=== PATIENT | male | born 1970 | race Caucasian/White ===

== ENCOUNTER 2020-01-18 11:14 | Inpatient (IN) | payer OTHER ==
[~2020-01-18] VITALS: Ht 167.6 cm; Wt 93.1 kg
[2020-01-18] MEDS ORDERED: SODIUM CHLORIDE 0.9% 1,000 ML IV ONE (12:45)
[2020-01-18] MEDS ORDERED: DexAMETHasone SOD PHOS 10MG/1ML VIAL INJ IV ONE (12:45)
[2020-01-18 13:10] LABS: Basophils # (auto) 0 10 ^3/uL (0-0.2); Basophils % (auto) 0.2 % (0.0-2.0); Eosinophils # (auto) 0 10 ^3/uL (0-0.8); Hematocrit 45.2 % (41.0-53.0); Hemoglobin 15.5 g/dL (13.5-17.5); Lymphocytes # (auto) 1.4 10 ^3/uL (0.4-5.4); Lymphocytes % (auto) 8.7 % (10.0-50.0); Mean Corpuscular Hemoglobin 30.6 pg (28.0-32.0); Mean Corpuscular Hgb Conc. 34.2 g/dL (32.0-36.0); Mean Corpuscular Volume 89.5 fL (80.0-100.0); Monocytes # (auto) 0.4 10 ^3/uL (0-1.3); Monocytes % (auto) 2.7 % (0.0-12.0); Neutrophils # (auto) 13.8 10 ^3/uL (1.6-8.6); Neutrophils % (auto) 88.4 % (37.0-80.0); Nucleated Red Blood Cells % 0.2 %; Platelet Count (auto) 278 10^3/uL (140-450); Red Blood Cells 5.05 10^6/uL (4.5-5.90); Red Cell Distribution Width 12.5 % (11.8-14.3); White Blood Cell 15.6 10^3/uL (4.4-10.8)
[2020-01-18 13:20] LABS: Albumin 2.8 g/dL (3.4-5.0); Anion Gap 7 (5-15); Blood Urea Nitrogen 13 mg/dL (7-18); Calcium 8.5 mg/dL (8.5-10.1); Carbon Dioxide 27 mmol/L (21-32); Chloride 94 mmol/L (98-107); Glucose 313 mg/dL (74-106); Potassium 4.1 mmol/L (3.5-5.1); Sodium 128 mmol/L (136-145)
[2020-01-18 13:23] LABS: Lactic Acid w/Reflex 2.5 mmol/L (0.4-2.0)
[2020-01-18 13:25] LABS: Alanine Aminotransferase 74 U/L (16-61); Alkaline Phosphatase 298 U/L (45-117); Aspartate Aminotransferase 47 U/L (15-37); BUN/Creatinine Ratio 17.1; Bilirubin, Total 0.6 mg/dL (0.2-1.0); GFR African American 140 mL/min; GFR Non-African American 116 mL/min; Total Protein 7.6 g/dL (6.4-8.2)
[2020-01-18 13:35] LABS: INR 1.01 (0.9-1.15); Partial Thromboplastin Time 29.2 sec (23.0-31.2)
[2020-01-18] MEDS ORDERED: LABETALOL HCL 5 MG/ML 4ML SYRINGE IV PRN (14:45)
[2020-01-18] MEDS ORDERED: NITROGLYCERIN 0.4 MG SL TAB SL PRN (14:45)
[2020-01-18] MEDS: SODIUM CHLORIDE 0.9% 1,000 ML IV SCH ×2 (14:45→21:13)
[2020-01-18] MEDS ORDERED: ACETAMINOPHEN 500 MG TAB PO PRN (14:45)
[2020-01-18 14:54] VITALS: BP 119/67
[2020-01-18 15:26] LABS: Magnesium 2.7 mg/dL (1.6-2.6)
[2020-01-18 15:34] LABS: Lactate Dehydrogenase 563 U/L (87-241)
[2020-01-18 15:37] LABS: CRP High Sensitivity > 19.0 mg/dL (< 0.3)
[2020-01-18 15:43] VITALS: BP 118/70
[2020-01-18 18:23] VITALS: BP 122/73
[2020-01-18 21:15] VITALS: BP 117/61
[2020-01-18 21:25] VITALS: BP 128/74
[2020-01-18] MEDS: BUDESONIDE (INHALATION) 180 MCG IH IN SCH (21:25)
[2020-01-18] MEDS: ALBUTEROL SULF HFA 90MCG INH 200DOSE IN SCH (21:25)
[2020-01-18] MEDS ORDERED: DEXTROSE (50%) 50ML SYRG IV PRN (21:45)
[2020-01-18] MEDS ORDERED: INSULIN LANTUS (GLARGINE) 1 /0.01ml (100units/ml) SC SCH (22:00)
[2020-01-18] MEDS: INSULIN LANTUS (GLARGINE) 1 /0.01ml (100units/ml) SC SCH (22:15)
[2020-01-18] MEDS: InsuLIN REG 1unit/0.01ml Soln (100units/ml) SC SCH (22:15)
[2020-01-18] MEDS: ACCU-CHEK COMFORT CURVE STRIP VI SCH (22:29)
[2020-01-18 23:52] VITALS: BP 146/68
[2020-01-19] VITALS (13 sets, daily range): BP systolic 97–138; BP diastolic 53–91
[2020-01-19 03:24] LABS: Basophils # (auto) 0 10 ^3/uL (0-0.2); Basophils % (auto) 0.1 % (0.0-2.0); Eosinophils # (auto) 0 10 ^3/uL (0-0.8); Hematocrit 42.8 % (41.0-53.0); Hemoglobin 14.6 g/dL (13.5-17.5); Lymphocytes # (auto) 1.1 10 ^3/uL (0.4-5.4); Lymphocytes % (auto) 9.7 % (10.0-50.0); Mean Corpuscular Hemoglobin 30.5 pg (28.0-32.0); Mean Corpuscular Volume 89.6 fL (80.0-100.0); Monocytes # (auto) 0.6 10 ^3/uL (0-1.3); Monocytes % (auto) 5.7 % (0.0-12.0); Neutrophils # (auto) 9.5 10 ^3/uL (1.6-8.6); Neutrophils % (auto) 84.5 % (37.0-80.0); Nucleated Red Blood Cells % 0.1 %; Platelet Count (auto) 317 10^3/uL (140-450); Red Blood Cells 4.77 10^6/uL (4.5-5.90); Red Cell Distribution Width 12.9 % (11.8-14.3); White Blood Cell 11.2 10^3/uL (4.4-10.8)
[2020-01-19] MEDS: MORPHINE SULF INJ 2 MG/ML SYRINGE 1ML IV PRN ×2 (03:32→06:03)
[2020-01-19 03:43] LABS: Calcium 7.9 mg/dL (8.5-10.1); Potassium 4.2 mmol/L (3.5-5.1)
[2020-01-19 03:49] LABS: Albumin 2.4 g/dL (3.4-5.0); BUN/Creatinine Ratio 24.6; Bilirubin, Total 0.4 mg/dL (0.2-1.0)
[2020-01-19] MEDS: ACCU-CHEK COMFORT CURVE STRIP VI SCH ×4 (06:01→23:46)
[2020-01-19] MEDS: InsuLIN REG 1unit/0.01ml Soln (100units/ml) SC SCH ×4 (06:02→23:59)
[2020-01-19] MEDS: BUDESONIDE (INHALATION) 180 MCG IH IN SCH ×2 (06:25→22:05)
[2020-01-19] MEDS: ALBUTEROL SULF HFA 90MCG INH 200DOSE IN SCH ×3 (06:25→22:05)
[2020-01-19] MEDS: cefTRIAXone 1GM/50ML D5W 50 ML IV SCH (08:28)
[2020-01-19] MEDS ORDERED: ZINC SULFATE 220mg CAP or TAB PO SCH (10:00)
[2020-01-19] MEDS ORDERED: CHOLECALCIFEROL (VITD3) 2,000 UNIT CAP PO SCH (10:00)
[2020-01-19] MEDS ORDERED: PANTOPRAZOLE 40 MG/10 ML VIAL INJ IV SCH (10:00)
[2020-01-19] MEDS ORDERED: ENOXAPARIN SOD 40 MG/0.4 ML SYRINGE SC SCH (10:00)
[2020-01-19] MEDS ORDERED: ASCORBIC ACID 1,000 MG TAB PO SCH (10:00)
[2020-01-19] MEDS: AZITHROMYCIN 500MG/ 250ML 250 ML IV SCH (10:20)
[2020-01-19] MEDS: INSULIN LANTUS (GLARGINE) 1 /0.01ml (100units/ml) SC SCH (10:21)
[2020-01-19] MEDS ORDERED: CHOLECALCIFEROL (VITD3) 2,000 UNIT CAP PO ONE (11:30)
[2020-01-19] MEDS ORDERED: POTASSIUM CHL 20 Meq TABLET PO ONE (11:30)
[2020-01-19] MEDS ORDERED: FUROSEMIDE 40 MG/4 ML VIAL IV ONE (11:30)
[2020-01-19] MEDS ORDERED: ZINC SULFATE 220mg CAP or TAB PO ONE (11:30)
[2020-01-19] MEDS ORDERED: ASCORBIC ACID 500 MG TAB PO ONE (11:30)
[2020-01-19] MEDS ORDERED: THIAMINE 100mg/ml INJ (200mg/2ml VIAL) IV ONE (11:30)
[2020-01-19] MEDS ORDERED: REMDESIVIR 200 MG in NS 210ml LOADING DOSE ADULT IV ONE (17:00)
[2020-01-19] MEDS: ERGOCALCIFEROL 50,000 UNIT(1.25MG) CAP PO SCH (17:10)
[2020-01-19] MEDS: FUROSEMIDE 40 MG/4 ML VIAL IV SCH (19:45)
[2020-01-19] MEDS: LORazepam 2MG/ML-1ML VIAL IV PRN (21:25)
[2020-01-19] MEDS: ENOXAPARIN SOD 40 MG/0.4 ML SYRINGE SC SCH (21:25)
[2020-01-19] MEDS: INSULIN 70/30 1unit/0.01ml Susp (100units/ml) SC SCH (21:39)
[2020-01-20] VITALS (13 sets, daily range): BP systolic 98–122; BP diastolic 40–79
[2020-01-20] MEDS: MORPHINE SULF INJ 2 MG/ML SYRINGE 1ML IV PRN (02:22)
[2020-01-20] MEDS: FUROSEMIDE 40 MG/4 ML VIAL IV SCH ×2 (05:11→18:06)
[2020-01-20] MEDS: InsuLIN REG 1unit/0.01ml Soln (100units/ml) SC SCH ×4 (06:00→23:57)
[2020-01-20] MEDS: ACCU-CHEK COMFORT CURVE STRIP VI SCH ×4 (06:18→23:56)
[2020-01-20] MEDS: ACETAMINOPHEN 325 MG TAB PO PRN ×2 (06:39→15:47)
[2020-01-20] MEDS: ALBUTEROL SULF HFA 90MCG INH 200DOSE IN SCH ×3 (07:02→22:00)
[2020-01-20] MEDS: BUDESONIDE (INHALATION) 180 MCG IH IN SCH ×2 (07:02→22:00)
[2020-01-20] MEDS: cefTRIAXone 1GM/50ML D5W 50 ML IV SCH (08:50)
[2020-01-20] MEDS: AZITHROMYCIN 500MG/ 250ML 250 ML IV SCH (09:45)
[2020-01-20] MEDS: ASCORBIC ACID 500 MG TAB PO SCH (09:46)
[2020-01-20] MEDS: ZINC SULFATE 220mg CAP or TAB PO SCH (09:46)
[2020-01-20] MEDS: CHOLECALCIFEROL (VITD3) 2,000 UNIT CAP PO SCH (09:47)
[2020-01-20] MEDS: DexAMETHasone SOD PHOS 10MG/1ML VIAL INJ IV SCH (09:48)
[2020-01-20] MEDS: FAMOTIDINE 20 MG TAB PO SCH (09:48)
[2020-01-20] MEDS: POTASSIUM CHL 20 Meq TABLET PO SCH (09:48)
[2020-01-20] MEDS: ENOXAPARIN SOD 40 MG/0.4 ML SYRINGE SC SCH ×2 (09:49→23:56)
[2020-01-20] MEDS: THIAMINE 100mg/ml INJ (200mg/2ml VIAL) IV SCH (09:49)
[2020-01-20] MEDS: INSULIN 70/30 1unit/0.01ml Susp (100units/ml) SC SCH ×2 (09:53→23:55)
[2020-01-20 10:40] LABS: Basophils # (auto) 0 10 ^3/uL (0-0.2); Basophils % (auto) 0.3 % (0.0-2.0); Eosinophils # (auto) 0 10 ^3/uL (0-0.8); Eosinophils % (auto) 0.1 % (0.0-7.0); Lymphocytes # (auto) 1.4 10 ^3/uL (0.4-5.4); Lymphocytes % (auto) 12.5 % (10.0-50.0); Mean Corpuscular Hemoglobin 31.2 pg (28.0-32.0); Mean Corpuscular Hgb Conc. 34.8 g/dL (32.0-36.0); Mean Corpuscular Volume 89.7 fL (80.0-100.0); Monocytes # (auto) 0.4 10 ^3/uL (0-1.3); Monocytes % (auto) 4.1 % (0.0-12.0); Nucleated Red Blood Cells % 0.2 %; Platelet Count (auto) 388 10^3/uL (140-450); Red Blood Cells 5.13 10^6/uL (4.5-5.90); White Blood Cell 10.8 10^3/uL (4.4-10.8)
[2020-01-20 10:52] LABS: INR 1.04 (0.9-1.15)
[2020-01-20 10:59] LABS: Albumin 2.7 g/dL (3.4-5.0); Calcium 8.4 mg/dL (8.5-10.1); Potassium 3.7 mmol/L (3.5-5.1)
[2020-01-20 11:08] LABS: Bilirubin, Total 0.8 mg/dL (0.2-1.0); CRP High Sensitivity 9.8 mg/dL (< 0.3); Total Protein 7.9 g/dL (6.4-8.2)
[2020-01-20] MEDS: REMDESIVIR 100mg in NS 230ml DAILYx4DAYS (NO VENT) IV SCH (17:56)
[2020-01-21] VITALS (9 sets, daily range): BP systolic 101–119; BP diastolic 61–78
[2020-01-21] MEDS: LORazepam 2MG/ML-1ML VIAL IV PRN ×2 (00:02→23:46)
[2020-01-21] MEDS: ACETAMINOPHEN 325 MG TAB PO PRN ×4 (00:03→23:47)
[2020-01-21] MEDS: FUROSEMIDE 40 MG/4 ML VIAL IV SCH ×2 (05:55→18:32)
[2020-01-21] MEDS: InsuLIN REG 1unit/0.01ml Soln (100units/ml) SC SCH ×4 (05:55→22:58)
[2020-01-21] MEDS: ACCU-CHEK COMFORT CURVE STRIP VI SCH ×4 (05:55→23:00)
[2020-01-21] MEDS: BUDESONIDE (INHALATION) 180 MCG IH IN SCH ×2 (06:15→22:31)
[2020-01-21] MEDS: ALBUTEROL SULF HFA 90MCG INH 200DOSE IN SCH ×3 (06:15→22:31)
[2020-01-21] MEDS: AZITHROMYCIN 500MG/ 250ML 250 ML IV SCH (08:54)
[2020-01-21] MEDS: ENOXAPARIN SOD 40 MG/0.4 ML SYRINGE SC SCH ×2 (08:54→23:06)
[2020-01-21] MEDS: cefTRIAXone 1GM/50ML D5W 50 ML IV SCH (08:54)
[2020-01-21] MEDS: FAMOTIDINE 20 MG TAB PO SCH (08:55)
[2020-01-21] MEDS: POTASSIUM CHL 20 Meq TABLET PO SCH (08:55)
[2020-01-21] MEDS: ASCORBIC ACID 500 MG TAB PO SCH (08:55)
[2020-01-21] MEDS: CHOLECALCIFEROL (VITD3) 2,000 UNIT CAP PO SCH (08:56)
[2020-01-21] MEDS: DexAMETHasone SOD PHOS 10MG/1ML VIAL INJ IV SCH (08:56)
[2020-01-21] MEDS: THIAMINE 100mg/ml INJ (200mg/2ml VIAL) IV SCH (08:56)
[2020-01-21] MEDS: ZINC SULFATE 220mg CAP or TAB PO SCH (08:58)
[2020-01-21] MEDS: INSULIN 70/30 1unit/0.01ml Susp (100units/ml) SC SCH ×2 (09:18→22:57)
[2020-01-21 11:05] LABS: Basophils # (auto) 0.1 10 ^3/uL (0-0.2); Basophils % (auto) 0.4 % (0.0-2.0); Eosinophils # (auto) 0 10 ^3/uL (0-0.8); Eosinophils % (auto) 0.3 % (0.0-7.0); Hematocrit 47.9 % (41.0-53.0); Lymphocytes # (auto) 1.1 10 ^3/uL (0.4-5.4); Lymphocytes % (auto) 7.6 % (10.0-50.0); Mean Corpuscular Hemoglobin 30.1 pg (28.0-32.0); Mean Corpuscular Hgb Conc. 33.5 g/dL (32.0-36.0); Mean Corpuscular Volume 89.8 fL (80.0-100.0); Monocytes # (auto) 0.4 10 ^3/uL (0-1.3); Neutrophils # (auto) 12.3 10 ^3/uL (1.6-8.6); Neutrophils % (auto) 88.7 % (37.0-80.0); Nucleated Red Blood Cells % 0.1 %; Platelet Count (auto) 443 10^3/uL (140-450); Red Blood Cells 5.33 10^6/uL (4.5-5.90); White Blood Cell 13.8 10^3/uL (4.4-10.8)
[2020-01-21 11:31] LABS: Calcium 8.4 mg/dL (8.5-10.1); Potassium 3.7 mmol/L (3.5-5.1)
[2020-01-21 11:36] LABS: Albumin 2.9 g/dL (3.4-5.0); BUN/Creatinine Ratio 41.1; Bilirubin, Total 0.6 mg/dL (0.2-1.0)
[2020-01-21] MEDS: REMDESIVIR 100mg in NS 230ml DAILYx4DAYS (NO VENT) IV SCH (17:12)
[2020-01-22] VITALS (12 sets, daily range): BP systolic 84–121; BP diastolic 47–68
[2020-01-22] MEDS: InsuLIN REG 1unit/0.01ml Soln (100units/ml) SC SCH ×4 (06:00→23:44)
[2020-01-22] MEDS: ACCU-CHEK COMFORT CURVE STRIP VI SCH ×4 (07:52→23:44)
[2020-01-22] MEDS: FUROSEMIDE 40 MG/4 ML VIAL IV SCH ×2 (07:52→18:08)
[2020-01-22] MEDS: ENOXAPARIN SOD 40 MG/0.4 ML SYRINGE SC SCH ×2 (09:02→21:46)
[2020-01-22] MEDS: cefTRIAXone 1GM/50ML D5W 50 ML IV SCH (09:02)
[2020-01-22] MEDS: THIAMINE 100mg/ml INJ (200mg/2ml VIAL) IV SCH (09:02)
[2020-01-22] MEDS: ASCORBIC ACID 500 MG TAB PO SCH (09:03)
[2020-01-22] MEDS: FAMOTIDINE 20 MG TAB PO SCH (09:03)
[2020-01-22] MEDS: POTASSIUM CHL 20 Meq TABLET PO SCH (09:04)
[2020-01-22] MEDS: ZINC SULFATE 220mg CAP or TAB PO SCH (09:04)
[2020-01-22] MEDS: DexAMETHasone SOD PHOS 10MG/1ML VIAL INJ IV SCH (09:04)
[2020-01-22] MEDS: AZITHROMYCIN 500MG/ 250ML 250 ML IV SCH (09:04)
[2020-01-22] MEDS: CHOLECALCIFEROL (VITD3) 2,000 UNIT CAP PO SCH (09:05)
[2020-01-22] MEDS: INSULIN 70/30 1unit/0.01ml Susp (100units/ml) SC SCH ×2 (09:12→21:31)
[2020-01-22 09:35] LABS: Albumin 2.6 g/dL (3.4-5.0); Calcium 8.5 mg/dL (8.5-10.1); Potassium 3.5 mmol/L (3.5-5.1)
[2020-01-22 09:39] LABS: BUN/Creatinine Ratio 36.9; Bilirubin, Total 0.7 mg/dL (0.2-1.0); Eosinophils # (auto) 0.2 10 ^3/uL (0-0.8); Eosinophils % (auto) 1.3 % (0.0-7.0); Monocytes # (auto) 0.4 10 ^3/uL (0-1.3); Monocytes % (auto) 2.7 % (0.0-12.0); Total Protein 7.5 g/dL (6.4-8.2)
[2020-01-22 09:42] LABS: Basophils # (auto) 0.1 10 ^3/uL (0-0.2); Basophils % (auto) 0.5 % (0.0-2.0); Hematocrit 45.7 % (41.0-53.0); Hemoglobin 15.5 g/dL (13.5-17.5); Lymphocytes # (auto) 1.1 10 ^3/uL (0.4-5.4); Lymphocytes % (auto) 8.6 % (10.0-50.0); Mean Corpuscular Hemoglobin 30.8 pg (28.0-32.0); Mean Corpuscular Hgb Conc. 33.9 g/dL (32.0-36.0); Mean Corpuscular Volume 90.7 fL (80.0-100.0); Neutrophils # (auto) 11.6 10 ^3/uL (1.6-8.6); Neutrophils % (auto) 86.9 % (37.0-80.0); Nucleated Red Blood Cells % 0.6 %; Platelet Count (auto) 452 10^3/uL (140-450); Red Blood Cells 5.03 10^6/uL (4.5-5.90); White Blood Cell 13.4 10^3/uL (4.4-10.8)
[2020-01-22] MEDS: ACETAMINOPHEN 325 MG TAB PO PRN ×2 (10:00→21:49)
[2020-01-22] MEDS: BUDESONIDE (INHALATION) 180 MCG IH IN SCH ×2 (10:00→22:01)
[2020-01-22] MEDS: ALBUTEROL SULF HFA 90MCG INH 200DOSE IN SCH ×2 (11:38→22:01)
[2020-01-22] MEDS: REMDESIVIR 100mg in NS 230ml DAILYx4DAYS (NO VENT) IV SCH (16:38)
[2020-01-23] VITALS (11 sets, daily range): BP systolic 91–114; BP diastolic 44–69
[2020-01-23 03:20] LABS: Eosinophils # (auto) 0.2 10 ^3/uL (0-0.8); Mean Corpuscular Hemoglobin 30.1 pg (28.0-32.0); Monocytes # (auto) 0.4 10 ^3/uL (0-1.3)
[2020-01-23 03:23] LABS: Basophils # (auto) 0 10 ^3/uL (0-0.2); Basophils % (auto) 0.3 % (0.0-2.0); Eosinophils % (auto) 1.4 % (0.0-7.0); Hematocrit 45.8 % (41.0-53.0); Hemoglobin 15.3 g/dL (13.5-17.5); Lymphocytes # (auto) 1.4 10 ^3/uL (0.4-5.4); Lymphocytes % (auto) 11.7 % (10.0-50.0); Mean Corpuscular Hgb Conc. 33.4 g/dL (32.0-36.0); Monocytes % (auto) 3.3 % (0.0-12.0); Neutrophils # (auto) 10.2 10 ^3/uL (1.6-8.6); Neutrophils % (auto) 83.3 % (37.0-80.0); Platelet Count (auto) 513 10^3/uL (140-450); Red Blood Cells 5.09 10^6/uL (4.5-5.90); Red Cell Distribution Width 12.9 % (11.8-14.3); White Blood Cell 12.2 10^3/uL (4.4-10.8)
[2020-01-23 03:39] LABS: Potassium 3.4 mmol/L (3.5-5.1)
[2020-01-23 03:48] LABS: Albumin 2.7 g/dL (3.4-5.0); BUN/Creatinine Ratio 35.4; Bilirubin, Total 0.6 mg/dL (0.2-1.0); Calcium 8.4 mg/dL (8.5-10.1); Total Protein 7.6 g/dL (6.4-8.2)
[2020-01-23] MEDS: InsuLIN REG 1unit/0.01ml Soln (100units/ml) SC SCH ×4 (05:19→23:47)
[2020-01-23] MEDS: ACCU-CHEK COMFORT CURVE STRIP VI SCH ×4 (05:20→23:47)
[2020-01-23] MEDS: BUDESONIDE (INHALATION) 180 MCG IH IN SCH ×2 (06:07→23:09)
[2020-01-23] MEDS: ALBUTEROL SULF HFA 90MCG INH 200DOSE IN SCH ×3 (06:07→23:10)
[2020-01-23] MEDS: FUROSEMIDE 40 MG/4 ML VIAL IV SCH ×2 (06:13→19:49)
[2020-01-23] MEDS: ACETAMINOPHEN 325 MG TAB PO PRN (06:13)
[2020-01-23] MEDS: ZINC SULFATE 220mg CAP or TAB PO SCH (10:01)
[2020-01-23] MEDS: THIAMINE 100mg/ml INJ (200mg/2ml VIAL) IV SCH (10:01)
[2020-01-23] MEDS: DexAMETHasone SOD PHOS 10MG/1ML VIAL INJ IV SCH (10:01)
[2020-01-23] MEDS: CHOLECALCIFEROL (VITD3) 2,000 UNIT CAP PO SCH (10:02)
[2020-01-23] MEDS: ASCORBIC ACID 500 MG TAB PO SCH (10:02)
[2020-01-23] MEDS: FAMOTIDINE 20 MG TAB PO SCH (10:02)
[2020-01-23] MEDS: POTASSIUM CHL 20 Meq TABLET PO SCH (10:02)
[2020-01-23] MEDS: ENOXAPARIN SOD 40 MG/0.4 ML SYRINGE SC SCH ×2 (10:03→22:00)
[2020-01-23] MEDS: cefTRIAXone 1GM/50ML D5W 50 ML IV SCH (10:07)
[2020-01-23] MEDS: INSULIN 70/30 1unit/0.01ml Susp (100units/ml) SC SCH ×2 (10:34→22:00)
[2020-01-23] MEDS: AZITHROMYCIN 500MG/ 250ML 250 ML IV SCH (10:34)
[2020-01-23] MEDS: REMDESIVIR 100mg in NS 230ml DAILYx4DAYS (NO VENT) IV SCH (17:19)
[2020-01-24] VITALS (11 sets, daily range): BP systolic 99–114; BP diastolic 56–69
[2020-01-24 03:47] LABS: Basophils # (auto) 0 10 ^3/uL (0-0.2); Basophils % (auto) 0.4 % (0.0-2.0); Eosinophils # (auto) 0.2 10 ^3/uL (0-0.8); Eosinophils % (auto) 1.7 % (0.0-7.0); Hematocrit 47.7 % (41.0-53.0); Hemoglobin 16.2 g/dL (13.5-17.5); Lymphocytes # (auto) 1.4 10 ^3/uL (0.4-5.4); Lymphocytes % (auto) 13.2 % (10.0-50.0); Mean Corpuscular Hemoglobin 30.4 pg (28.0-32.0); Mean Corpuscular Volume 89.4 fL (80.0-100.0); Monocytes # (auto) 0.4 10 ^3/uL (0-1.3); Monocytes % (auto) 3.7 % (0.0-12.0); Neutrophils # (auto) 8.8 10 ^3/uL (1.6-8.6); Platelet Count (auto) 591 10^3/uL (140-450); Red Blood Cells 5.34 10^6/uL (4.5-5.90); Red Cell Distribution Width 13.1 % (11.8-14.3); White Blood Cell 10.9 10^3/uL (4.4-10.8)
[2020-01-24 04:08] LABS: Calcium 8.7 mg/dL (8.5-10.1); Potassium 3.8 mmol/L (3.5-5.1)
[2020-01-24 04:10] LABS: BUN/Creatinine Ratio 34.8
[2020-01-24] MEDS: InsuLIN REG 1unit/0.01ml Soln (100units/ml) SC SCH ×3 (06:00→18:23)
[2020-01-24] MEDS: FUROSEMIDE 40 MG/4 ML VIAL IV SCH ×2 (06:16→17:18)
[2020-01-24] MEDS: ACCU-CHEK COMFORT CURVE STRIP VI SCH ×4 (06:16→23:41)
[2020-01-24] MEDS: BUDESONIDE (INHALATION) 180 MCG IH IN SCH ×2 (06:20→23:08)
[2020-01-24] MEDS: ALBUTEROL SULF HFA 90MCG INH 200DOSE IN SCH ×3 (06:20→23:08)
[2020-01-24] MEDS: cefTRIAXone 1GM/50ML D5W 50 ML IV SCH (08:35)
[2020-01-24] MEDS: ENOXAPARIN SOD 40 MG/0.4 ML SYRINGE SC SCH ×2 (08:36→21:02)
[2020-01-24] MEDS: DexAMETHasone SOD PHOS 10MG/1ML VIAL INJ IV SCH (08:36)
[2020-01-24] MEDS: ASCORBIC ACID 500 MG TAB PO SCH (08:37)
[2020-01-24] MEDS: THIAMINE 100mg/ml INJ (200mg/2ml VIAL) IV SCH (08:37)
[2020-01-24] MEDS: ZINC SULFATE 220mg CAP or TAB PO SCH (08:37)
[2020-01-24] MEDS: POTASSIUM CHL 20 Meq TABLET PO SCH (08:38)
[2020-01-24] MEDS: CHOLECALCIFEROL (VITD3) 2,000 UNIT CAP PO SCH (08:38)
[2020-01-24] MEDS: FAMOTIDINE 20 MG TAB PO SCH (08:38)
[2020-01-24] MEDS: AZITHROMYCIN 500MG/ 250ML 250 ML IV SCH (10:08)
[2020-01-24] MEDS: INSULIN 70/30 1unit/0.01ml Susp (100units/ml) SC SCH (11:11)
[2020-01-24] MEDS: LORazepam 2MG/ML-1ML VIAL IV PRN ×2 (21:02)
[2020-01-25] VITALS (7 sets, daily range): BP systolic 88–107; BP diastolic 53–67
[2020-01-25] MEDS: INSULIN 70/30 1unit/0.01ml Susp (100units/ml) SC SCH ×2 (00:12→12:20)
[2020-01-25] MEDS: InsuLIN REG 1unit/0.01ml Soln (100units/ml) SC SCH ×4 (00:21→17:07)
[2020-01-25 04:34] LABS: Basophils # (auto) 0 10 ^3/uL (0-0.2); Basophils % (auto) 0.2 % (0.0-2.0); Eosinophils # (auto) 0.2 10 ^3/uL (0-0.8); Eosinophils % (auto) 1.7 % (0.0-7.0); Hemoglobin 15.9 g/dL (13.5-17.5); Lymphocytes # (auto) 1.5 10 ^3/uL (0.4-5.4); Lymphocytes % (auto) 15.1 % (10.0-50.0); Mean Corpuscular Hemoglobin 30.9 pg (28.0-32.0); Mean Corpuscular Hgb Conc. 34.5 g/dL (32.0-36.0); Mean Corpuscular Volume 89.5 fL (80.0-100.0); Monocytes # (auto) 0.5 10 ^3/uL (0-1.3); Monocytes % (auto) 4.5 % (0.0-12.0); Neutrophils % (auto) 78.5 % (37.0-80.0); Nucleated Red Blood Cells % 0.1 %; Platelet Count (auto) 603 10^3/uL (140-450); Red Blood Cells 5.14 10^6/uL (4.5-5.90); Red Cell Distribution Width 12.9 % (11.8-14.3); White Blood Cell 10.2 10^3/uL (4.4-10.8)
[2020-01-25 04:49] LABS: Calcium 9.2 mg/dL (8.5-10.1); Potassium 4.1 mmol/L (3.5-5.1)
[2020-01-25 04:50] LABS: BUN/Creatinine Ratio 31.8
[2020-01-25] MEDS: FUROSEMIDE 40 MG/4 ML VIAL IV SCH ×2 (05:33→17:05)
[2020-01-25] MEDS: ACCU-CHEK COMFORT CURVE STRIP VI SCH ×4 (05:33→23:53)
[2020-01-25] MEDS: ALBUTEROL SULF HFA 90MCG INH 200DOSE IN SCH ×3 (06:00→22:33)
[2020-01-25] MEDS: BUDESONIDE (INHALATION) 180 MCG IH IN SCH ×2 (09:33→22:34)
[2020-01-25] MEDS: cefTRIAXone 1GM/50ML D5W 50 ML IV SCH (09:38)
[2020-01-25] MEDS: ENOXAPARIN SOD 40 MG/0.4 ML SYRINGE SC SCH ×2 (09:38→20:53)
[2020-01-25] MEDS: FAMOTIDINE 20 MG TAB PO SCH (09:38)
[2020-01-25] MEDS: THIAMINE 100mg/ml INJ (200mg/2ml VIAL) IV SCH (09:39)
[2020-01-25] MEDS: POTASSIUM CHL 20 Meq TABLET PO SCH (09:40)
[2020-01-25] MEDS: DexAMETHasone SOD PHOS 10MG/1ML VIAL INJ IV SCH (09:40)
[2020-01-25] MEDS: CHOLECALCIFEROL (VITD3) 2,000 UNIT CAP PO SCH (09:40)
[2020-01-25] MEDS: ZINC SULFATE 220mg CAP or TAB PO SCH (09:41)
[2020-01-25] MEDS: ASCORBIC ACID 500 MG TAB PO SCH (09:41)
[2020-01-25] MEDS: AZITHROMYCIN 500MG/ 250ML 250 ML IV SCH (12:21)
[2020-01-25] MEDS: LORazepam 2MG/ML-1ML VIAL IV PRN (20:53)
[2020-01-26] VITALS (11 sets, daily range): BP systolic 93–110; BP diastolic 54–94
[2020-01-26] MEDS: InsuLIN REG 1unit/0.01ml Soln (100units/ml) SC SCH ×5 (00:32→23:25)
[2020-01-26] MEDS: INSULIN 70/30 1unit/0.01ml Susp (100units/ml) SC SCH ×3 (00:33→23:25)
[2020-01-26 03:33] LABS: Basophils # (auto) 0 10 ^3/uL (0-0.2); Eosinophils # (auto) 0.1 10 ^3/uL (0-0.8); Lymphocytes # (auto) 1.8 10 ^3/uL (0.4-5.4); Lymphocytes % (auto) 16.5 % (10.0-50.0); Monocytes # (auto) 0.6 10 ^3/uL (0-1.3); Neutrophils # (auto) 8.3 10 ^3/uL (1.6-8.6)
[2020-01-26 03:36] LABS: Basophils % (auto) 0.3 % (0.0-2.0); Eosinophils % (auto) 0.6 % (0.0-7.0); Hematocrit 46.1 % (41.0-53.0); Mean Corpuscular Hemoglobin 30.8 pg (28.0-32.0); Mean Corpuscular Hgb Conc. 34.8 g/dL (32.0-36.0); Mean Corpuscular Volume 88.6 fL (80.0-100.0); Monocytes % (auto) 5.8 % (0.0-12.0); Neutrophils % (auto) 76.8 % (37.0-80.0); Platelet Count (auto) 676 10^3/uL (140-450); Red Cell Distribution Width 12.9 % (11.8-14.3); White Blood Cell 10.9 10^3/uL (4.4-10.8)
[2020-01-26 03:53] LABS: BUN/Creatinine Ratio 29.4; Calcium 9.1 mg/dL (8.5-10.1); Potassium 4.2 mmol/L (3.5-5.1)
[2020-01-26] MEDS: FUROSEMIDE 40 MG/4 ML VIAL IV SCH ×2 (05:34→17:21)
[2020-01-26] MEDS: ACCU-CHEK COMFORT CURVE STRIP VI SCH ×4 (05:35→23:26)
[2020-01-26] MEDS: ALBUTEROL SULF HFA 90MCG INH 200DOSE IN SCH ×3 (07:59→21:21)
[2020-01-26] MEDS: BUDESONIDE (INHALATION) 180 MCG IH IN SCH ×2 (07:59→21:21)
[2020-01-26] MEDS: cefTRIAXone 1GM/50ML D5W 50 ML IV SCH (09:51)
[2020-01-26] MEDS: THIAMINE 100mg/ml INJ (200mg/2ml VIAL) IV SCH (09:51)
[2020-01-26] MEDS: POTASSIUM CHL 20 Meq TABLET PO SCH ×2 (09:52→10:00)
[2020-01-26] MEDS: AZITHROMYCIN 500MG/ 250ML 250 ML IV SCH (09:52)
[2020-01-26] MEDS: FAMOTIDINE 20 MG TAB PO SCH (09:52)
[2020-01-26] MEDS: ZINC SULFATE 220mg CAP or TAB PO SCH (09:52)
[2020-01-26] MEDS: DexAMETHasone SOD PHOS 10MG/1ML VIAL INJ IV SCH (09:52)
[2020-01-26] MEDS: CHOLECALCIFEROL (VITD3) 2,000 UNIT CAP PO SCH (09:53)
[2020-01-26] MEDS: ENOXAPARIN SOD 40 MG/0.4 ML SYRINGE SC SCH ×2 (09:53→21:30)
[2020-01-26] MEDS: ASCORBIC ACID 500 MG TAB PO SCH (09:53)
[2020-01-26] MEDS: ERGOCALCIFEROL 50,000 UNIT(1.25MG) CAP PO SCH (15:30)
[2020-01-26] MEDS: LORazepam 2MG/ML-1ML VIAL IV PRN (21:30)
[2020-01-26] MEDS: DOCUSATE SOD 100 MG CAP PO SCH (22:11)
[2020-01-27] VITALS (10 sets, daily range): BP systolic 87–106; BP diastolic 53–72
[2020-01-27 04:30] LABS: Eosinophils # (auto) 0 10 ^3/uL (0-0.8); Lymphocytes # (auto) 1.6 10 ^3/uL (0.4-5.4); Mean Corpuscular Hemoglobin 30.8 pg (28.0-32.0); Monocytes # (auto) 0.7 10 ^3/uL (0-1.3); Neutrophils # (auto) 6.4 10 ^3/uL (1.6-8.6); Red Blood Cells 4.87 10^6/uL (4.5-5.90)
[2020-01-27 04:33] LABS: Basophils # (auto) 0 10 ^3/uL (0-0.2); Basophils % (auto) 0.3 % (0.0-2.0); Eosinophils % (auto) 0.5 % (0.0-7.0); Hematocrit 43.1 % (41.0-53.0); Lymphocytes % (auto) 17.9 % (10.0-50.0); Mean Corpuscular Hgb Conc. 34.8 g/dL (32.0-36.0); Mean Corpuscular Volume 88.5 fL (80.0-100.0); Monocytes % (auto) 7.9 % (0.0-12.0); Neutrophils % (auto) 73.4 % (37.0-80.0); Nucleated Red Blood Cells % 0.3 %; Platelet Count (auto) 639 10^3/uL (140-450); Red Cell Distribution Width 12.5 % (11.8-14.3); White Blood Cell 8.7 10^3/uL (4.4-10.8)
[2020-01-27 04:50] LABS: Calcium 8.8 mg/dL (8.5-10.1); Potassium 4.3 mmol/L (3.5-5.1)
[2020-01-27 04:54] LABS: BUN/Creatinine Ratio 33.3
[2020-01-27] MEDS: FUROSEMIDE 40 MG/4 ML VIAL IV SCH ×2 (05:38→18:39)
[2020-01-27] MEDS: ALBUTEROL SULF HFA 90MCG INH 200DOSE IN SCH ×3 (06:02→22:28)
[2020-01-27] MEDS: ACCU-CHEK COMFORT CURVE STRIP VI SCH ×3 (06:03→17:37)
[2020-01-27] MEDS: InsuLIN REG 1unit/0.01ml Soln (100units/ml) SC SCH ×3 (06:04→17:46)
[2020-01-27] MEDS: cefTRIAXone 1GM/50ML D5W 50 ML IV SCH (09:19)
[2020-01-27] MEDS: DOCUSATE SOD 100 MG CAP PO SCH ×2 (09:50→21:50)
[2020-01-27] MEDS: ZINC SULFATE 220mg CAP or TAB PO SCH (09:50)
[2020-01-27] MEDS: FAMOTIDINE 20 MG TAB PO SCH (09:50)
[2020-01-27] MEDS: ENOXAPARIN SOD 40 MG/0.4 ML SYRINGE SC SCH ×2 (09:50→21:51)
[2020-01-27] MEDS: POTASSIUM CHL 20 Meq TABLET PO SCH (09:50)
[2020-01-27] MEDS: CHOLECALCIFEROL (VITD3) 2,000 UNIT CAP PO SCH (09:52)
[2020-01-27] MEDS: ASCORBIC ACID 500 MG TAB PO SCH (09:52)
[2020-01-27] MEDS: INSULIN 70/30 1unit/0.01ml Susp (100units/ml) SC SCH (10:00)
[2020-01-27] MEDS: DexAMETHasone SOD PHOS 10MG/1ML VIAL INJ IV SCH (11:09)
[2020-01-27] MEDS: THIAMINE 100mg/ml INJ (200mg/2ml VIAL) IV SCH (11:09)
[2020-01-27] MEDS: AZITHROMYCIN 500MG/ 250ML 250 ML IV SCH (11:21)
[2020-01-27] MEDS: BUDESONIDE (INHALATION) 180 MCG IH IN SCH ×2 (12:58→22:28)
[2020-01-27] MEDS: DOXYCYCLINE 100 MG TAB/CAP PO SCH (21:51)
[2020-01-27] MEDS: LORazepam 2MG/ML-1ML VIAL IV PRN (21:52)
[2020-01-28] VITALS: BP 96/54
[2020-01-28] MEDS: InsuLIN REG 1unit/0.01ml Soln (100units/ml) SC SCH ×4 (00:08→17:49)
[2020-01-28] MEDS: ACCU-CHEK COMFORT CURVE STRIP VI SCH ×4 (00:08→17:49)
[2020-01-28] MEDS: INSULIN 70/30 1unit/0.01ml Susp (100units/ml) SC SCH ×3 (00:17→21:47)
[2020-01-28 04:00] VITALS: BP 94/57
[2020-01-28 04:10] LABS: BUN/Creatinine Ratio 42.9; Calcium 8.7 mg/dL (8.5-10.1); Potassium 4.1 mmol/L (3.5-5.1)
[2020-01-28] MEDS: FUROSEMIDE 40 MG/4 ML VIAL IV SCH ×2 (06:00→17:48)
[2020-01-28] MEDS: BUDESONIDE (INHALATION) 180 MCG IH IN SCH ×2 (06:15→22:52)
[2020-01-28] MEDS: ALBUTEROL SULF HFA 90MCG INH 200DOSE IN SCH ×3 (06:15→22:52)
[2020-01-28 08:00] VITALS: BP 99/58
[2020-01-28] MEDS: cefTRIAXone 1GM/50ML D5W 50 ML IV SCH (09:15)
[2020-01-28] MEDS: CHOLECALCIFEROL (VITD3) 2,000 UNIT CAP PO SCH (09:28)
[2020-01-28] MEDS: DOXYCYCLINE 100 MG TAB/CAP PO SCH ×2 (09:28→21:47)
[2020-01-28] MEDS: FAMOTIDINE 20 MG TAB PO SCH (09:28)
[2020-01-28] MEDS: ASCORBIC ACID 500 MG TAB PO SCH (09:28)
[2020-01-28] MEDS: ENOXAPARIN SOD 40 MG/0.4 ML SYRINGE SC SCH ×2 (09:29→21:50)
[2020-01-28] MEDS: DexAMETHasone SOD PHOS 10MG/1ML VIAL INJ IV SCH (09:29)
[2020-01-28] MEDS: DOCUSATE SOD 100 MG CAP PO SCH ×2 (09:29→21:47)
[2020-01-28] MEDS: ZINC SULFATE 220mg CAP or TAB PO SCH (09:29)
[2020-01-28] MEDS: POTASSIUM CHL 20 Meq TABLET PO SCH (09:31)
[2020-01-28 12:00] VITALS: BP 90/54
[2020-01-28 16:00] VITALS: BP 93/61
[2020-01-28 20:00] VITALS: BP 94/57
[2020-01-28] MEDS: LORazepam 2MG/ML-1ML VIAL IV PRN (20:50)
[2020-01-29] VITALS: BP 90/61
[2020-01-29] MEDS: InsuLIN REG 1unit/0.01ml Soln (100units/ml) SC SCH ×4 (00:40→18:11)
[2020-01-29 04:00] VITALS: BP 87/56
[2020-01-29] MEDS: ACCU-CHEK COMFORT CURVE STRIP VI SCH ×4 (06:39→17:55)
[2020-01-29] MEDS: FUROSEMIDE 40 MG/4 ML VIAL IV SCH ×2 (06:39→18:33)
[2020-01-29] MEDS: BUDESONIDE (INHALATION) 180 MCG IH IN SCH (07:01)
[2020-01-29] MEDS: ALBUTEROL SULF HFA 90MCG INH 200DOSE IN SCH ×2 (07:01→14:27)
[2020-01-29 08:00] VITALS: BP 91/56
[2020-01-29] MEDS: cefTRIAXone 1GM/50ML D5W 50 ML IV SCH (08:22)
[2020-01-29 08:37] LABS: Eosinophils # (auto) 0.1 10 ^3/uL (0-0.8); Hemoglobin 16.6 g/dL (13.5-17.5); Monocytes # (auto) 0.9 10 ^3/uL (0-1.3); Neutrophils # (auto) 5.2 10 ^3/uL (1.6-8.6); Nucleated Red Blood Cells % 0.1 %; Red Cell Distribution Width 12.7 % (11.8-14.3)
[2020-01-29 08:40] LABS: Basophils # (auto) 0 10 ^3/uL (0-0.2); Basophils % (auto) 0.6 % (0.0-2.0); Eosinophils % (auto) 0.8 % (0.0-7.0); Hematocrit 47.8 % (41.0-53.0); Lymphocytes # (auto) 2.5 10 ^3/uL (0.4-5.4); Lymphocytes % (auto) 28.9 % (10.0-50.0); Mean Corpuscular Hemoglobin 31.1 pg (28.0-32.0); Mean Corpuscular Hgb Conc. 34.8 g/dL (32.0-36.0); Mean Corpuscular Volume 89.5 fL (80.0-100.0); Monocytes % (auto) 10.3 % (0.0-12.0); Neutrophils % (auto) 59.4 % (37.0-80.0); Platelet Count (auto) 598 10^3/uL (140-450); Red Blood Cells 5.34 10^6/uL (4.5-5.90); White Blood Cell 8.7 10^3/uL (4.4-10.8)
[2020-01-29 09:03] LABS: Calcium 9.1 mg/dL (8.5-10.1); Potassium 4.3 mmol/L (3.5-5.1)
[2020-01-29 09:08] LABS: BUN/Creatinine Ratio 31.7; Bilirubin, Total 0.5 mg/dL (0.2-1.0); Total Protein 7.5 g/dL (6.4-8.2)
[2020-01-29] MEDS: DexAMETHasone SOD PHOS 10MG/1ML VIAL INJ IV SCH (10:11)
[2020-01-29] MEDS: DOXYCYCLINE 100 MG TAB/CAP PO SCH (10:12)
[2020-01-29] MEDS: CHOLECALCIFEROL (VITD3) 2,000 UNIT CAP PO SCH (10:12)
[2020-01-29] MEDS: DOCUSATE SOD 100 MG CAP PO SCH (10:12)
[2020-01-29] MEDS: ZINC SULFATE 220mg CAP or TAB PO SCH (10:12)
[2020-01-29] MEDS: ENOXAPARIN SOD 40 MG/0.4 ML SYRINGE SC SCH (10:12)
[2020-01-29] MEDS: FAMOTIDINE 20 MG TAB PO SCH (10:13)
[2020-01-29] MEDS: POTASSIUM CHL 20 Meq TABLET PO SCH (10:13)
[2020-01-29] MEDS: ASCORBIC ACID 500 MG TAB PO SCH (10:14)
[2020-01-29] MEDS: INSULIN 70/30 1unit/0.01ml Susp (100units/ml) SC SCH (10:15)
[2020-01-29 12:00] VITALS: BP 92/63
[2020-01-29] MEDS ORDERED: DEX4T PO (13:54)
== END 2020-01-29 21:41 | disposition home or self-care (01) | DRG 177 ==
LOC: ER 11:14 → EDBD 11:14 → TELE 11:15 → DOU IN ICU 21:15
PROVIDERS: ATTEND Internal Medicine Pulmonary Disease
PROC: 5A09457 Assistance with Respiratory Ventilation, 24-96 Consecutive Hours, Continuous Positive Airway Pressure (ICD-10-PCS; principal; 2020-01-18)
PROC: XW033E5 Introduction of Remdesivir Anti-infective into Peripheral Vein, Percutaneous Approach, New Technology Group 5 (ICD-10-PCS; 2020-01-19)
PROC: XW13325 Transfusion of Convalescent Plasma (Nonautologous) into Peripheral Vein, Percutaneous Approach, New Technology Group 5 (ICD-10-PCS; 2020-01-19)
PROC: 5A09357 Assistance with Respiratory Ventilation, Less than 24 Consecutive Hours, Continuous Positive Airway Pressure (ICD-10-PCS; 2020-01-21)
DX: U07.1 COVID-19 (principal); J12.89 Other viral pneumonia; J96.01 Acute respiratory failure with hypoxia; J98.11 Atelectasis; E87.1 Hypo-osmolality and hyponatremia; E11.65 Type 2 diabetes mellitus with hyperglycemia; E66.9 Obesity, unspecified; Z68.33 Body mass index [BMI] 33.0-33.9, adult
CPT/HCPCS: 36415; 36600; 71045; 80048; 80053; 82306; 82728; 82805; 82962; 83036; 83605; 83615; 83735; 83880; 84443; 84484; 85025; 85379; 85610; 85730; 86141; 86850; 86900; 86901; 87040; 87426; 93005; 94640; 94660; 96361; 96374; 99291; C9113; G0378; J0696; J1100; J1815; J7060